=== PATIENT | male | born 1960 | race Two or more races ===

== ENCOUNTER 2019-07-08 11:46 | Emergency (ER) | payer MEDICAID ==
[~2019-07-08] VITALS: Ht 172.7 cm; Wt 73.0 kg
[2019-07-08] MEDS ORDERED: SODIUM CHLORIDE 0.9% 1,000 ML IV ONE (12:15)
[2019-07-08] MEDS ORDERED: SODIUM CHLORIDE 0.9% 1000ML BAG (SEPSIS BOLUS) IV ONE (12:15)
[2019-07-08 12:48] LABS: CHLORIDE 100 mEq/L (98-107)
[2019-07-08 12:51] LABS: INR 1.3; PROTHROMBIN TIME 13.8 sec (9.6-11.0)
[2019-07-08 12:53] LABS: ETHANOL BLOOD 63 mg/dL
[2019-07-08 12:57] LABS: BASOPHILS % 1.6 % (0.0-2.0); EOSINOPHILS % 0.1 % (0.0-5.0); HEMATOCRIT. 24.8 % (42.0-52.0); LYMPHOCYTES % 20.9 % (20.0-50.0); MEAN CORPUSCULAR HEMOGLOBIN 29.8 pg (28.0-32.0); MEAN CORPUSCULAR VOLUME 92.5 fL (80.0-94.0); MEAN PLATELET VOLUME 9.6 fl (7.4-10.4); MONOCYTES % 9.9 % (2.0-8.0); NEUTROPHILS % 67.5 % (40.0-76.0); RED BLOOD CELL COUNT 2.68 mill/uL (4.7-6.1); RED CELL DISTRIBUTION WIDTH 16.2 % (11.6-14.6)
[2019-07-08 13:03] LABS: PLATELET 40 x1000/uL (130-400)
[2019-07-08 14:03] LABS: PLATELET ESTIMATE MARKEDLY DECREASED
[2019-07-08] MEDS ORDERED: NOREPINEPHRINE 4MG/250ML PMX 250 ML IV ONE (15:15)
[2019-07-08] MEDS ORDERED: EPINEPHRINE 0.1MG/ML (1:10,000) 10ML SYR ONE (15:43)
[2019-07-08] MEDS ORDERED: NOREPINEPHRINE 32 MG in DEXT 5% WATER 468 ML IV PRN ×2 (16:30→19:30)
[2019-07-08] MEDS ORDERED: IPRATROPIUM/ALBUTEROL 0.5-3(2.5)MG/3ML NEB HHN PRN (16:45)
[2019-07-08 17:01] LABS: BG CARBOXYHEMOGLOBIN 0.3 % (0.5-1.5); BG DEOXYHEMOGLOBIN 1.4 % (0.0-5.0); BG FRACTION INSPIRED OXYGEN 100; BG METHEMOGLOBIN 0.5 % (0.0-1.5); BG OXYGEN SATURATION 98.6 % (92.0-98.5); BG OXYHEMOGLOBIN 97.8 % (94.0-97.0); BG PCO2 37.9 mmHg (35.0-45.0); BG PH < 6.686 (7.350-7.450); BG PO2 245.2 mmHg (75.0-100.0); BG SAMPLE SITE RIGHT FEMORAL; BG TOTAL HEMOGLOBIN 6.6 g/dL (12.0-18.0); BG VENT MODE VENT - A/C
[2019-07-08] MEDS: ALBUMIN HUMAN 25GM/500ML (5%) IV NR ×2 (17:24→17:47)
[2019-07-08] MEDS ORDERED: PANTOPRAZOLE SODIUM 40 MG/VIAL IV SCH ×2 (18:00)
[2019-07-08] MEDS ORDERED: IPRATROPIUM/ALBUTEROL 0.5-3(2.5)MG/3ML NEB HHN SCH (18:00)
[2019-07-08 18:41] LABS: CLARITY URINE CLOUDY (CLEAR); COLOR URINE YELLOW (YELLOW); KETONES URINE 1+ (NEGATIVE); LEUKOCYTE ESTERASE URINE NEGATIVE (NEGATIVE); NITRITE URINE NEGATIVE (NEGATIVE); OCCULT BLOOD URINE TRACE (NEGATIVE); PH URINE 7.5 (4.5-8.0); PROTEIN URINE 2+ (NEGATIVE); SPECIFIC GRAVITY URINE 1.033 (1.005-1.030)
[2019-07-08 18:52] LABS: *AMPHETAMINES SCREEN URINE NEGATIVE (NEGATIVE); *BARBITURATES SCREEN URINE NEGATIVE (NEGATIVE); *BENZODIAZEPINES SCREEN URINE NEGATIVE (NEGATIVE); *COCAINE SCREEN URINE NEGATIVE (NEGATIVE); METHADONE URINE SCREEN NEGATIVE (NEGATIVE); OPIATES URINE SCREEN NEGATIVE (NEGATIVE)
[2019-07-08 18:53] LABS: CANNABINOID URINE SCREEN NEGATIVE (NEGATIVE); PHENCYCLIDINE URINE SCREEN NEGATIVE (NEGATIVE)
[2019-07-08] MEDS ORDERED: OCTREOTIDE ACETATE 50 MCG/ML 1ML IV SCH (19:45)
[2019-07-08 19:46] LABS: HEMATOCRIT 20.5 % (42.0-52.0)
[2019-07-08] MEDS ORDERED: LORAZEPAM 2MG/ML CPJ IV PRN (20:00)
[2019-07-08] MEDS ORDERED: ONDANSETRON HCL 4MG/2ML INJ IV PRN (20:00)
[2019-07-08] MEDS ORDERED: OCTREOTIDE 1,000 MCG in SODIUM CHLORIDE 0.9% 98 ML IV SCH ×4 (20:00)
[2019-07-08] MEDS ORDERED: HYDROCORTISONE SOD SUCCINATE 100 MG/2 ML VIAL IV SCH (23:59)
[2019-07-09] MEDS ORDERED: VASOPRESSIN 10 UNIT in SODIUM CHLORIDE 0.9% 99.5 ML IV SCH ×4
[2019-07-09 00:14] LABS: CHLORIDE 116 mEq/L (98-107)
[2019-07-09 00:40] LABS: HEMATOCRIT 23.2 % (42.0-52.0)
[2019-07-09 00:49] LABS: HEMOGLOBIN 6.6 g/dL (14.0-18.0)
[2019-07-09 01:16] LABS: PROTHROMBIN TIME > 100.0 sec (9.6-11.0)
[2019-07-09 01:18] LABS: INR > 10.0
[2019-07-09] MEDS ORDERED: SODIUM BICARBONATE 8.4% 1 MEQ/ML 50ML SYR IV SCH (01:30)
[2019-07-09] MEDS ORDERED: DEXTROSE 50% WATER 50ML SYRINGE IV SCH (01:30)
[2019-07-09] MEDS ORDERED: INSULIN REGULAR (HUMULIN R) 300UNITS/3ML IV SCH (01:30)
[2019-07-09] MEDS ORDERED: SODIUM BICARBONATE 100 MEQ in SODIUM CHLORIDE 0.45% 1,000 ML IV SCH (02:00)
[2019-07-09] MEDS ORDERED: SODIUM BICARBONATE 8.4% 1 MEQ/ML 50ML SYR IV ONE ×2 (02:20→08:45)
[2019-07-09 05:23] LABS: HEMATOCRIT. 28.1 % (42.0-52.0); MEAN CORPUSCULAR HEMOGLOBIN 29.2 pg (28.0-32.0); MEAN CORPUSCULAR VOLUME 102.7 fL (80.0-94.0); MEAN PLATELET VOLUME 8.7 fl (7.4-10.4); PLATELET 120 x1000/uL (130-400); RED BLOOD CELL COUNT 2.74 mill/uL (4.7-6.1); RED CELL DISTRIBUTION WIDTH 17.3 % (11.6-14.6)
[2019-07-09] MEDS ORDERED: NOREPINEPHRINE 4MG/250ML PMX 250 ML IV PRN (05:30)
[2019-07-09] MEDS ORDERED: WATER IV PRN (06:00)
[2019-07-09] MEDS ORDERED: DEXT 5% IV PRN (06:00)
[2019-07-09] MEDS ORDERED: PHENYLEPHRINE IV PRN (06:00)
[2019-07-09 06:33] LABS: NUCLEATED RED BLOOD CELLS 3 /100 WBC
[2019-07-09 06:39] LABS: PLATELET ESTIMATE DECREASED
[2019-07-09] MEDS ORDERED: INSULIN REGULAR (HUMULIN R) 300UNITS/3ML IV NR (07:05)
[2019-07-09] MEDS ORDERED: DEXTROSE 50% WATER 50ML SYRINGE IV NR (07:05)
[2019-07-09] MEDS ORDERED: SODIUM BICARBONATE 8.4% 1 MEQ/ML 50ML SYR IV NR (07:06)
[2019-07-09] MEDS: SODIUM CHLORIDE 0.9% 1,000 ML IV SCH ×2 (07:51→08:02)
[2019-07-09] MEDS ORDERED: PANTOPRAZOLE SODIUM 40 MG/VIAL IV NR (08:00)
[2019-07-09] MEDS ORDERED: PHENYLEPHRINE 10 MG in DEXT 5% WATER 249 ML IV PRN (08:00)
[2019-07-09] MEDS ORDERED: PANTOPRAZOLE SODIUM 40 MG/VIAL IV SCH (08:30)
[2019-07-09] MEDS ORDERED: CALCIUM CHLORIDE 1GM/10ML SYR IV ONE (08:45)
[2019-07-09] MEDS ORDERED: INSULIN REGULAR (HUMULIN R) 300UNITS/3ML IV ONE (08:45)
[2019-07-09] MEDS ORDERED: DEXTROSE 50% WATER 50ML SYRINGE IV ONE (08:45)
[2019-07-09 09:09] LABS: CHLORIDE 106 mEq/L (98-107)
[2019-07-09 09:13] LABS: MEAN CORPUSCULAR HEMOGLOBIN 29.2 pg (28.0-32.0); MEAN CORPUSCULAR VOLUME 103.8 fL (80.0-94.0); MEAN PLATELET VOLUME 8.9 fl (7.4-10.4); PLATELET 94 x1000/uL (130-400); RED CELL DISTRIBUTION WIDTH 17.3 % (11.6-14.6)
[2019-07-09] MEDS ORDERED: NOREPINEPHRINE 32 MG in DEXT 5% WATER 468 ML IV PRN (09:15)
[2019-07-09 09:18] LABS: HEMATOCRIT. 17.6 % (42.0-52.0)
[2019-07-09 09:46] LABS: NUCLEATED RED BLOOD CELLS 5 /100 WBC; PLATELET ESTIMATE DECREASED
[2019-07-09 09:50] VITALS: BP 65/40
[2019-07-09 09:52] LABS: PROTHROMBIN TIME > 100.0 sec (9.6-11.0)
[2019-07-09 09:53] LABS: INR > 10.0
== END 2019-07-09 12:20 | disposition expired ==
LOC: ER 11:46 → ENRESERV 14:06 → CANRESERV 14:06 → EDBEDREQSVC 14:29 → EDBEDREQ 14:29 → EDBEDREQTM 14:29 → ER 07-09 12:20 → CANBEDREQ 07-09 12:22
DX: K92.2 Gastrointestinal hemorrhage, unspecified (principal); D64.9 Anemia, unspecified; R09.02 Hypoxemia; F10.229 Alcohol dependence with intoxication, unspecified; Y90.3 Blood alcohol level of 60-79 mg/100 ml; E11.9 Type 2 diabetes mellitus without complications
CPT/HCPCS: 31500; 36415; 36556; 36600; 71045; 80048; 80053; 80076; 80305; 80320; 81003; 82105; 82375; 82962; 83605; 83735; 83880; 84484; 85014; 85018; 85025; 85610; 86850; 86900; 86901; 86920; 86927; 87040; 87077; 92950; 93005; 96365; 96366; 96375; 99291; C9113; J1720; J1815; J2354; J2370; J3490; J7030; J7050; J7060; P9041; P9016; P9017; P9034; G0480